=== PATIENT | female | born 1975 | race Caucasian/White ===

== ENCOUNTER 2017-03-31 16:58 | Emergency (ER) | payer OTHER ==
[2017-03-31] MEDS ORDERED: XYLOCAINE 1% HCL 20 ML MDV ONE (17:15)
[2017-03-31] MEDS ORDERED: BACIGUENT PACKET ONE (17:34)
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
[2017-03-31] MEDS ORDERED: BACIGUENT PACKET TP ONE (17:39)
[2017-03-31 18:08] VITALS: BP 118/78; PULSE 108; O2SAT 98
[2017-03-31] MEDS ORDERED: XYLOCAINE 1% HCL 20 ML MDV IJ ONE (18:10)
== END 2017-03-31 18:08 | disposition home or self-care (01) ==
LOC: ED 16:58
PROC: 0HQDXZZ Repair Right Lower Arm Skin, External Approach (ICD-10-PCS; principal; 2017-03-31)
DX: S51.811A Laceration without foreign body of right forearm, initial encounter (principal); X78.1XXA Intentional self-harm by knife, initial encounter
CPT/HCPCS: 12002; 96372; 99283; A9270-GY

== ENCOUNTER 2020-12-25 09:51 | Emergency (ER) | payer OTHER ==
[2020-12-25] MEDS ORDERED: TORAdol 30 mg Injection IM ONE (10:20)
--- NOTE | 2020-12-25 10:22 | ERPHSYRPT ---
- History of Present Illness Time Seen by Provider: 12/25/20 10:03 Source: patient Exam Limitations: no limitations Patient Subjective Stated Complaint: Patient states she fell on saturday barefoot, slid on the floor, and toes curled under on the register. States second toe feels like "it is not connected". Triage Nursing Assessment: Patient L foot swollen toes, small lac on 2nd toe, and bruising on 3rd toe. Patient states pain is 10/10 when moving and with light stimulation. Physician History: 45 years old female presented in the ER with chief complaint of left second and third toe pain for the last 3 days after she slipped and fall with bending her left toes. Pain is moderate to severe sharp nature, aggravated with movements, weightbearing and partial relief with resting and her work on her pain medications. Unsure about tetanus status. Has some superficial cuts on the second toe. No injury anywhere else. Method of Injury: fell Occurred: days ago (3) Quality: sharpness Severity of Pain-Max: moderate Severity of Pain-Current: severe Lower Extremities Pain: 2nd toe: left, 3rd toe: left Modifying Factors: Improves With: cold therapy, immobilization. Worsens With: movement Allergies/Adverse Reactions: Penicillins Allergy (Verified 12/25/20 10:13) adapalene [From Differin] Adverse Reaction (Verified 12/25/20 10:13) Home Medications: Potassium Chloride 20 Meq [Klor-Con 20 MEQ] 20 meq PO BID 10/04/16 [History] Amphet Asp/Amphet/D-Amphet [Adderall 30 mg Tablet] 30 mg PO BID 12/25/20 [History] Atorvastatin Calcium [Lipitor] 10 mg PO DAILY 12/25/20 [History] Doxycycline Hyclate 100 mg [Vibramycin 100 MG] 100 mg PO BID 12/25/20 [History] Hydroxyzine HCl 25 mg [Atarax 25 mg] 25 mg PO TID 12/25/20 [History] Spironolactone [Aldactone] 100 mg PO DAILY 12/25/20 [History] Hx Tetanus, Diphtheria Vaccination/Date Given: Yes (with in 5 years) Hx Influenza Vaccination/Date Given: Yes Hx Pneumococcal Vaccination/Date Given: No Travel Risk - International Travel Have you traveled outside of the country in past 3 weeks: No - Coronavirus Screening Are you exhibiting any of the following symptoms?: No - Vaccine Status Have you recieved 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[employer]: [employer] - Vaccination Dates Date of 2cond Vaccination (if applicable): 06/13/20 - Review of Systems Constitutional: No Symptoms Ears, Nose, & Throat: No Symptoms Respiratory: No Symptoms Cardiac: No Symptoms Abdominal/Gastrointestinal: No Symptoms Genitourinary Symptoms: No Symptoms Musculoskeletal: Injury, Joint Pain Skin: Skin Lesions Neurological: No Symptoms Psychological: No Symptoms Endocrine: No Symptoms Hematologic/Lymphatic: No Symptoms - Past Medical History Pertinent Past Medical History: Yes Neurological History: No Pertinent History ENT History: No Pertinent History Cardiac History: No Pertinent History Respiratory History: No Pertinent History Endocrine Medical History: No Pertinent History Musculoskeletal History: Osteoarthritis GI Medical History: No Pertinent History History: No Pertinent History Psycho-Social History: Anxiety, Depression Female Reproductive Disorders: Abnormal Uterine Bleeding, Fibroids, Menstrual Problems Other Medical History: RESTLESS LEG, BURNING SENSATION INTO FEET. thyroid nodules on L side - Past Surgical History Past Surgical History: Yes Neuro Surgical History: No Pertinent History Cardiac: No Pertinent History Respiratory: No Pertinent History Gastrointestinal: No Pertinent History Genitourinary: No Pertinent History Musculoskeletal: No Pertinent History Female Surgical History: Section, Tubal Ligation, Other Other Surgical History: Ablation. RASTA Neck. Leep - Social History Smoking Status: Current every day smoker How long have you smoked: 25 years Exposure to second hand smoke: Yes Drug Use: none Patient Lives Alone: No (kids) - Female History Hx Last Menstrual Period: 12/19/20 Hx Now: No - Nursing Vital Signs Nursing Vital Signs: Initial Vital Signs Temperature 98.1 F 12/25/20 10:01 Pulse Rate 88 12/25/20 10:01 Respiratory Rate 16 12/25/20 10:01 Blood Pressure 131/95 12/25/20 10:01 O2 Sat by Pulse Oximetry 100 12/25/20 10:01 Pain Scale Pain Intensity 0 - Physical Exam General Appearance: no apparent distress, alert, anxiety Eyes, Ears, Nose, Throat Exam: normal ENT inspection Neck Exam: normal inspection, supple, full range of motion Cardiovascular/Respiratory Exam: normal breath sounds, regular rate/rhythm Legs Exam: bilateral leg: non-tender, normal inspection, normal range of motion, no evidence of injury Knees Exam: bilateral knee: non-tender, normal inspection, normal range of motion, no evidence of injury Ankle Exam: bilateral ankle: non-tender, normal inspection, normal range of mo tion, no evidence of injury Foot Exam: right foot: non-tender, normal inspection, normal range of motion, no evidence of injury, left foot: bone tenderness (Second and third toes), limited range of motion (Second third and fourth toe), pain, soft tissue tenderness, swelling Neuro/Tendon Exam: normal sensation, normal motor functions, normal tendon functions Mental Status Exam: alert, oriented x 3 Skin Exam: normal color SpO2 Interpretation: normal SpO2: 100 O2 Delivery: Room Air Ordered Tests: Active Orders 24 hr Category Date Time Status FOOT (MINIMUM 3 VIEWS) Stat Exams 12/25/20 11:07 Taken Medication Summary Discontinued Medications Generic Name Dose Route Start Last Admin Trade Name Vitaliyq PRN Reason Stop Dose Admin Ketorolac Tromethamine 30 mg 12/25/20 10:20 12/25/20 10:45 Toradol 30 Mg Injection IM 12/25/20 10:21 30 mg STAT ONE Administration Ketorolac Tromethamine Confirm 12/25/20 10:45 Toradol 30 Mg Injection Administered 12/25/20 10:46 Dose 30 mg .ROUTE .STK-MED ONE - Progress Progress: improved, pain not gone completely, re-examined Progress Note: 12/25/20 11:27 She is up-to-date with tetanus. She is given Toradol for symptomatic relief. X-rays showed fracture distal third digit phalanx and questionable fracture second middle phalanx. Bar taping done, postop flat shoe given and recommended outpatient podiatry follow-up. Counseled pt/family regarding: diagnosis, need for follow-up, rad results - Departure Departure Disposition: Home Clinical Impression: Toe fracture, left Qualifiers: Encounter type: initial encounter Toe: unspecified toe Fracture type: closed Fracture alignment: nondisplaced Qualified Code(s): S92.912A - Unspecified fracture of left toe(s), initial encounter for closed fracture Condition: Stable Critical Care Time: No Referrals: JEREMIAH LOPEZ [Primary Care Provider] - Follow Up with PCP/3 days PENNY ETIENNE DPM [ACTIVE STAFF] - (Tomorrow for reevaluation) Instructions: Toe Fracture (DC) Additional Instructions: Take pain medications as needed. Follow-up with podiatry for reevaluation. Return to ER for intractable pain, swelling, difficulty ambulation etc. Prescriptions: Hydrocodone/APAP 5/325 [[place] 5/325 mg] 1 each PO Q6H PRN PRN #10 tablet MDD 6 PRN Reason: Pain
[2020-12-25] MEDS ORDERED: TORAdol 30 mg Injection ONE (10:45)
[2020-12-25 11:32] VITALS: BP 125/76; PULSE 80; O2SAT 99
--- NOTE | 2020-12-25 21:27 | XRAY ---
Indication: Pain following fall. Comparison: January 11, 2014. 3 nonweightbearing views left foot demonstrates new nondisplaced fracture base 3rd distal phalanx. No other bony, articular, or soft tissue abnormalities.
== END 2020-12-25 11:40 | disposition home or self-care (01) ==
LOC: ED 09:51
DX: S92.912A Unspecified fracture of left toe(s), initial encounter for closed fracture (principal); W01.0XXA Fall on same level from slipping, tripping and stumbling without subsequent striking against object, initial encounter; Y93.01 Activity, walking, marching and hiking; Y92.009 Unspecified place in unspecified non-institutional (private) residence as the place of occurrence of the external cause; M79.675 Pain in left toe(s); Z79.899 Other long term (current) drug therapy
CPT/HCPCS: 73630; 96372; 99283; J1885

== ENCOUNTER 2021-10-07 11:42 | Emergency (ER) | payer OTHER ==
[2021-10-07 11:57] VITALS: BP 130/75; PULSE 105; O2SAT 99
[2021-10-07] MEDS ORDERED: Norflex 60 MG/2 ML IM ONE (12:10)
[2021-10-07] MEDS ORDERED: TORAdol 30 mg Injection IM ONE (12:10)
--- NOTE | 2021-10-07 12:13 | ERPHSYRPT ---
- History of Present Illness Time Seen by Provider: 10/07/21 12:11 Source: patient Exam Limitations: no limitations Patient Subjective Stated Complaint: Back pain Triage Nursing Assessment: Patient brought back to ED per w/c and transferred self to bed. Patient A+O x3. Patient's skin pink, warm and dry. Patient states she fell out of bed yesterday and has had back pain since. Patient complains of right lower back pain that goes down right leg 5/10. Physician History: Patient states she fell out of bed yesterday and has had back pain since. Patient complains of right lower back pain that goes down right leg 5/10. No other injury Timing/Duration: yesterday Severity: moderate Modifying Factors: Improves With: cold therapy Associated Symptoms: denies symptoms Allergies/Adverse Reactions: Penicillins Allergy (Verified 10/07/21 11:52) adapalene [From Differin] Adverse Reaction (Verified 10/07/21 11:52) Home Medications: Potassium Chloride 20 Meq [Klor-Con 20 MEQ] 20 meq PO BID 10/04/16 [History] Atorvastatin Calcium [Lipitor] 10 mg PO DAILY 12/25/20 [History] Dextroamphetamine/Amphetamine [Adderall 30 mg Tablet] 30 mg PO BID 12/25/20 [History] Doxycycline Hyclate 100 mg [Vibramycin 100 MG] 100 mg PO BID 12/25/20 [History] Hydroxyzine HCl 25 mg [Atarax 25 mg] 25 mg PO TID 12/25/20 [History] Spironolactone [Aldactone] 100 mg PO DAILY 12/25/20 [History] Hx Tetanus, Diphtheria Vaccination/Date Given: Yes (with in 5 years) Hx Influenza Vaccination/Date Given: Yes Hx Pneumococcal Vaccination/Date Given: No Immunizations Up to Date: Yes Travel Risk - International Travel Have you traveled outside of the country in past 3 weeks: No - Coronavirus Screening Are you exhibiting any of the following symptoms?: No Close contact with a COVID-19 positive Pt in past 14-21 Days: No - Vaccine Status Have you recieved a 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[employer] - Vaccination Dates Date of 2cond Vaccination (if applicable): 06/13/20 - Review of Systems Constitutional: No Symptoms Eyes: No Symptoms Ears, Nose, & Throat: No Symptoms Respiratory: No Symptoms Cardiac: No Symptoms Abdominal/Gastrointestinal: No Symptoms Genitourinary Symptoms: No Symptoms Musculoskeletal: Back Pain, Fall - Past Medical History Pertinent Past Medical History: Yes Neurological History: No Pertinent History ENT History: No Pertinent History Cardiac History: No Pertinent History Respiratory History: No Pertinent History Endocrine Medical History: No Pertinent History Musculoskeletal History: Osteoarthritis GI Medical History: No Pertinent History History: No Pertinent History Psycho-Social History: Anxiety, Depression Female Reproductive Disorders: Abnormal Uterine Bleeding, Fibroids, Menstrual Problems Other Medical History: RESTLESS LEG, BURNING SENSATION INTO FEET. thyroid nodul es on L side - Past Surgical History Past Surgical History: Yes Neuro Surgical History: No Pertinent History Cardiac: No Pertinent History Respiratory: No Pertinent History Gastrointestinal: No Pertinent History Genitourinary: No Pertinent History Musculoskeletal: No Pertinent History Female Surgical History: Section, Tubal Ligation, Other Other Surgical History: Ablation. RASTA Neck. Leep - Social History Smoking Status: Current every day smoker How long have you smoked: 25 years Exposure to second hand smoke: Yes Drug Use: none Patient Lives Alone: No - Female History Hx Last Menstrual Period: two months Hx Now: No - Nursing Vital Signs Nursing Vital Signs: Initial Vital Signs Temperature 97.6 F 10/07/21 11:52 Pulse Rate 105 H 10/07/21 11:52 Respiratory Rate 18 10/07/21 11:52 Blood Pressure 130/75 10/07/21 11:52 O2 Sat by Pulse Oximetry 99 10/07/21 11:52 Pain Scale Pain Intensity 5 - Physical Exam General Appearance: no apparent distress Eye Exam: PERRL/EOMI Ears, Nose, Throat Exam: normal ENT inspection Neck Exam: normal inspection Respiratory Exam: normal breath sounds Cardiovascular Exam: regular rate/rhythm Gastrointestinal/Abdomen Exam: soft Back Exam: decreased range of motion Extremity Exam: normal inspection Neurologic Exam: alert, oriented x 3 SpO2: 99 - Course Nursing assessment & vital signs reviewed: Yes - Radiology Exams Pelvis X-ray Interpretation: Reviewed by me Ordered Tests: Active Orders 24 hr Category Date Time Status HIP LUCAS (4V) INCL PELV IF DONE Stat Exams 10/07/21 12:19 Taken Medication Summary Discontinued Medications Generic Name Dose Route Start Last Admin Trade Name Freq PRN Reason Stop Dose Admin Ketorolac Tromethamine 60 mg 10/07/21 12:10 10/07/21 12:20 Ketorolac Tromethamine 30 Mg/Ml Inj IM 10/07/21 12:11 60 mg STAT ONE Administration Ketorolac Tromethamine Confirm 10/07/21 12:17 Ketorolac Tromethamine 30 Mg/Ml Inj Administered 10/07/21 12:18 Dose 60 mg .ROUTE .STK-MED ONE Orphenadrine Citrate 60 mg 10/07/21 12:10 10/07/21 12:20 Orphenadrine Citrate 60 Mg/2 Ml Amp IM 10/07/21 12:11 60 mg STAT ONE Administration Orphenadrine Citrate Confirm 10/07/21 12:17 Orphenadrine Citrate 60 Mg/2 Ml Amp Administered 10/07/21 12:18 Dose 60 mg .ROUTE .STK-MED ONE - Progress Progress: improved, pain not gone completely Counseled pt/family regarding: diagnosis, need for follow-up, rad results, smoking cessation - Departure Departure Disposition: Home Clinical Impression: Acute right hip pain Condition: Stable Critical Care Time: No Referrals: JEREMIAH LOPEZ NP [Primary Care Provider] - Follow up/PCP as directed Instructions: Low Back Pain (DC) Additional Instructions: Discharge/Care Plan MADYSON VILLAR was seen on 10/07/21 in the Emergency Room. The patient was counseled regarding Diagnosis,Lab results, Imaging studies, need for follow up and when to return to the Emergency Room. Prescriptions given: Discharge Note I have spoken with the patient and/or caregivers. I have explained the patient's condition, diagnosis and treatment plan based on the information available to me at this time. I have answered the patient's and/or caregiver's questions and addressed any concerns. The patient and/or caregivers have as good understanding of the patient's diagnosis, condition and treatment plan as can be expected at this point. The vital signs have been stable. The patient's condition is stable and appropriate for discharge from the emergency department. The patient will pursue further outpatient evaluation with the primary care physician or other designated or consulting physician as outlined in the discharge instructions. The patient and/or caregivers are agreeable to this plan of care and follow-up instructions have been explained in detail. The patient and/or caregivers have received these instruction. The patient/and or caregivers are aware that any significant change in condition or worsening of symptoms should prompt an immediate return to this or the closest emergency department or call 911. MADYSON VILLAR was seen on 10/07/21 n the Emergency Room. At that time you were treated for an emergent condition, during your visit Laboratory, Radiology and/or other procedures may have been ordered. It is very important that you follow-up with your Primary Care Physician JEREMIAH LOPEZ within the next 24-48 hours to review your Emergency Room visit and the final results of testing that was ordered. Some test results such as Urine Cultures, Blood Cultures, and other cultures if ordered will not be finalized for 24-48 hours. If you do not have a Primary Care Provider please call the medical records department at [phone] to obtain a copy of your results or you may sign into our patient portal to obtain these results by visiting us @ [email or web address] and completing the following steps: 1. Click on the Patient Portal link 2. Click the Patient Self Enrollment Link to complete the enrollment form and entering your 3. Once the enrollment form is completed you will receive an email with a temporary ID and password at the email address you provided. 4. Next choose a user name and password. Your user name must be at least 4 characters long and your password must be at least 4 characters long. 5. Choose a security question from the list and provide your answer to the question. If you already have signed into the Health Portal you may access your Health Care Information 10/12 by the following steps: 1. Login to our website @ [email or web address] 2. Enter your original user name and password. FAQS The [facility] Health Portal is an online tool that contains your Lab Results, Radiology Reports, Visit History, Discharge Instructions and Health Summary Lab and Radiology Results will not be available for 72 hours on the portal. The Portal is a secure site, passwords are encryted and URLs are re-written so they cannot be copied and pasted. You and authorized family members are the only ones who can access your Portal. Also there is a timeout feature that protects your information if you leave the Portal page open. If you have technical difficulty please use the Contact Us link on the page this will allow you to submit any questions you have regarding the Portal or you may contact the Medical Record Department at [phone] ext [phone]. BACK INJURY 1. May apply moist heat frequently for relief of pain. Take care not to burn the skin. Do not use heat for more than 30 minutes at a time. 2. Try to sleep on a firm bed, flat on your back. 3. If no improvement is noticed in 2-3 days, follow up with your family physician. 4. If you notice any numbness, tingling, weakness, or problems with your bowel or bladder, you should call your family physician or return to the emergency department. Prescriptions: Celecoxib 100 mg [celeBREX 100 MG] 100 mg PO BID #30
[2021-10-07] MEDS ORDERED: TORAdol 30 mg Injection ONE (12:17)
[2021-10-07] MEDS ORDERED: Norflex 60 MG/2 ML ONE (12:17)
--- NOTE | 2021-10-07 19:29 | XRAY ---
Indication: Pain following fall. Comparison: None 2 view left and right hip obtained. No bony, articular, or soft tissue abnormalities.
== END 2021-10-07 12:38 | disposition home or self-care (01) ==
LOC: ED 11:42
DX: M25.551 Pain in right hip (principal); M54.50 Low back pain, unspecified; W06.XXXA Fall from bed, initial encounter; Y92.003 Bedroom of unspecified non-institutional (private) residence as the place of occurrence of the external cause; Z72.0 Tobacco use; Z79.899 Other long term (current) drug therapy
CPT/HCPCS: 73522; 96372; 99284; J1885; J2360

== ENCOUNTER 2021-10-08 11:35 | Emergency (ER) | payer OTHER ==
[2021-10-08 11:49] VITALS: BP 132/77; PULSE 115; O2SAT 99
[2021-10-08] MEDS ORDERED: NORCO 5/325 MG PO ONE (11:58)
[2021-10-08] MEDS ORDERED: Norflex 60 MG/2 ML IM ONE (11:58)
[2021-10-08] MEDS ORDERED: NORCO 5/325 MG ONE (12:02)
[2021-10-08] MEDS ORDERED: Norflex 60 MG/2 ML ONE (12:02)
--- NOTE | 2021-10-08 12:57 | ERPHSYRPT ---
- History of Present Illness Time Seen by Provider: 10/08/21 11:40 Source: patient Exam Limitations: no limitations Patient Subjective Stated Complaint: PT TO ER WITH COMPLAINTS OF RIGHT HIP/BACK SINCE FALL ON SATURDAY. Triage Nursing Assessment: PT STATES SHE IS HAVING LOWER BACK/HIP PAIN THAT RADAITES DOWN HER LEG. PT STATES SHE IS HAVING ISSUES SLEEPING. PT WAS SEEN HERE YESTERDAY AND GIVEN NORFLEX AND TORADOL WITH NO RELEIF. Physician History: 46-year-old female presented to the ER with chief complaint of right sacroiliac area pain after she fell off of the bed 2 days ago. Patient was evaluated yesterday, had x-rays done which were negative, was given symptomatic treatment and given meloxicam to go home but does not seem helping much. Pain is better with resting and more with movements or twisting in a certain position. Mild radiation to buttock but no numbness tingling weakness of lower extremities. No loss of bowel control. Denies any midline pain. Timing/Duration: day(s) (2), constant, sudden, worse Method of Injury: fall Quality: sharp Back Pain Location: paraspinous muscles Back Pain Radiation: buttocks Severity of Pain-Max: severe Severity of Pain-Current: moderate Modifying Factors: Improves With: immobilization, pain medication, rest. Worsens With: movement Associated Symptoms: lower back pain, muscle spasms, No fever, No chills, No sweating, No urinary incontinence, No loss of bowel control, No constipation, No nausea, No vomiting, No problems urinating, No light-headedness, No dizziness, No numbness in legs/feet, No weakness, No sensory/motor loss, No tingling in legs/feet Allergies/Adverse Reactions: Penicillins Allergy (Verified 10/08/21 11:49) adapalene [From Differin] Adverse Reaction (Verified 10/08/21 11:49) Home Medications: Potassium Chloride 20 Meq [Klor-Con 20 MEQ] 20 meq PO BID 10/04/16 [History] Atorvastatin Calcium [Lipitor] 10 mg PO DAILY 12/25/20 [History] Hydroxyzine HCl 25 mg [Atarax 25 mg] 25 mg PO TID 12/25/20 [History] [place]-3 Fatty Acids/Fish Oil [Fish Oil 1,000 mg Capsule] 1 cap PO DAILY 10/08/21 [History] Hx Tetanus, Diphtheria Vaccination/Date Given: Yes (with in 5 years) Hx Influenza Vaccination/Date Given: Yes Hx Pneumococcal Vaccination/Date Given: No Travel Risk - International Travel Have you traveled outside of the country in past 3 weeks: No - Coronavirus Screening Are you exhibiting any of the following symptoms?: No Close contact with a COVID-19 positive Pt in past 14-21 Days: No - Vaccine Status Have you recieved a Covid-19 vaccination: Yes [employer]: [employer] - Vaccination Dates Date of 2cond Vaccination (if applicable): UNKNOWN - Review of Systems Constitutional: No Symptoms Ears, Nose, & Throat: No Symptoms Respiratory: No Symptoms Cardiac: No Symptoms Abdominal/Gastrointestinal: No Symptoms Genitourinary Symptoms: No Symptoms Musculoskeletal: Back Pain, Injury Skin: No Symptoms Neurological: No Symptoms Endocrine: No Symptoms Hematologic/Lymphatic: No Symptoms Immunological/Allergic: No Symptoms - Past Medical History Pertinent Past Medical History: Yes Neurological History: No Pertinent History ENT History: No Pertinent History Cardiac History: No Pertinent History Respiratory History: No Pertinent History Endocrine Medical History: No Pertinent History Musculoskeletal History: Osteoarthritis GI Medical History: No Pertinent History History: No Pertinent History Psycho-Social History: Anxiety, Depression Female Reproductive Disorders: Abnormal Uterine Bleeding, Fibroids, Menstrual Problems Other Medical History: RESTLESS LEG, BURNING SENSATION INTO FEET. thyroid nodu les on L side - Past Surgical History Past Surgical History: Yes Neuro Surgical History: No Pertinent History Cardiac: No Pertinent History Respiratory: No Pertinent History Gastrointestinal: No Pertinent History Genitourinary: No Pertinent History Musculoskeletal: No Pertinent History Female Surgical History: Section, Tubal Ligation, Other Other Surgical History: Ablation. RASTA Neck. Leep - Social History Smoking Status: Current every day smoker How long have you smoked: 25 years Exposure to second hand smoke: Yes Drug Use: none Patient Lives Alone: No - Female History Hx Now: No - Nursing Vital Signs Nursing Vital Signs: Initial Vital Signs Temperature 97.6 F 10/08/21 11:41 Pulse Rate 115 H 10/08/21 11:41 Respiratory Rate 10/08/21 11:41 Blood Pressure 132/77 10/08/21 11:41 O2 Sat by Pulse Oximetry 99 10/08/21 11:41 Pain Scale Pain Intensity 9 - Physical Exam General Appearance: no apparent distress, alert Eye Exam: PERRL/EOMI Neck Exam: normal inspection, supple, full range of motion Respiratory Exam: normal breath sounds, lungs clear Cardiovascular Exam: normal heart sounds, tachycardia Back Exam: normal inspection, muscle spasm, point tenderness (Right sacroiliac area. No vertebral tenderness. Negative straight leg raising test.), No CVA tenderness Extremity Exam: normal inspection, normal range of motion, pelvis stable Neurologic Exam: alert, oriented x 3, cooperative, billing adjudicator II-XII nml as tested Skin Exam: normal color SpO2 Interpretation: normal SpO2: 99 O2 Delivery: Room Air Ordered Tests: Medication Summary Discontinued Medications Generic Name Dose Route Start Last Admin Trade Name Andres PRN Reason Stop Dose Admin Hydrocodone Bitart/Acetaminophen 1 tab 10/08/21 11:58 10/08/21 12:04 Hydrocodone/Apap 5/325 Mg Tablet PO 10/08/21 11:59 1 tab STAT ONE Administration Hydrocodone Bitart/Acetaminophen Confirm 10/08/21 12:02 Hydrocodone/Apap 5/325 Mg Tablet Administered 10/08/21 12:03 Dose 1 tab .ROUTE .STK-MED ONE Orphenadrine Citrate 60 mg 10/08/21 11:58 10/08/21 12:05 Orphenadrine Citrate 60 Mg/2 Ml Vial IM 10/08/21 11:59 60 mg STAT ONE Administration Orphenadrine Citrate Confirm 10/08/21 12:02 Orphenadrine Citrate 60 Mg/2 Ml Vial Administered 10/08/21 12:03 Dose 60 mg .ROUTE .STK-MED ONE - Progress Progress: improved Progress Note: 10/08/21 12:54 46-year-old is evaluated for follow-up with right low back pain. She is given Norflex and 5 mg [place], on reevaluation her pain is almost completely resolved. Negative neuro exam in lower extremities. No midline tenderness. I believe patient has sacroiliac area contusion and will give short course of pain medication and outpatient follow-up recommended. Discussed signs symptoms of worsening needing return to ER which he seems understanding. Counseled pt/family regarding: diagnosis, need for follow-up - Departure Departure Disposition: Home Clinical Impression: Lower back pain Condition: Stable Critical Care Time: No Referrals: JEREMIAH LOPEZ NP [Primary Care Provider] - Follow up/PCP as directed (1-2 days for reevaluation) Instructions: Contusion (DC) Additional Instructions: Take pain medications as needed. Follow-up with primary care for reevaluation. Return to ER for intractable back pain, numbness tingling weakness of lower extremities, loss of bowel or bladder control/perineal numbness. Prescriptions: Hydrocodone/Acetaminophen [Hydrocodone-Acetamin 5-325 mg] 1 tab PO Q6HPRN PRN 3 Days #12 tablet MDD 4 PRN Reason: Pain Methocarbamol [Robaxin] 500 mg PO QID 7 Days #20 tablet
== END 2021-10-08 13:09 | disposition home or self-care (01) ==
LOC: ED 11:35
DX: M54.50 Low back pain, unspecified (principal); Z72.0 Tobacco use; Z79.891 Long term (current) use of opiate analgesic; Z79.899 Other long term (current) drug therapy
CPT/HCPCS: 96372; 99283; J2360; A9270-GY